=== PATIENT | female | born 1980 | race Caucasian/White ===

== ENCOUNTER 2018-07-13 14:12 | Emergency (ER) | END 2018-07-13 18:45 | disposition home or self-care (01) ==

== ENCOUNTER 2018-10-23 17:10 | Outpatient (CLI) | payer MEDICAID ==
[~2018-10-23] VITALS: Ht 167.6 cm; Wt 97.8 kg
[~2018-10-23 17:10] MED LIST: ACET500C5 PO
[2018-10-23 17:41] VITALS: Ht 167.6 cm; Wt 97.8 kg
[2018-10-23 17:42] VITALS: BP 119/86; PULSE 80; RESP 17
--- NOTE | 2018-10-23 20:39 | PN ---
Triage Information Date/Time 10/23/1811/07/2033 Reason for visit: Abd/pelvic pain Weeks of Gestation 25w4d /Para Diabetes: none Hypertention: none Additional information hx of PTB at 33w and 24w alleviated by resting ,aggrevated by walking Objective Vital Signs Date Temp Pulse Resp B/P (MAP) Pulse Ox O2 O2 Flow FiO2 Time Delivery Rate 10/23/18 98.1 80 17 119/86 17:42 (97) Heart Rate: 150's Heart Rate Comments adequate for GA Contractions: None Results/Medications Results 24 hrs Laboratory Tests Test 10/23/18 17:30 Urine Color STRAW Urine Clarity SLIGHTLY CLOUDY A Urine pH 6.0 Urine Specific [place] 1.004 Urine Ketones NEGATIVE Urine Nitrite NEGATIVE Urine Bilirubin NEGATIVE Urine Urobilinogen NEGATIVE Urine Leukocyte Esterase NEGATIVE Urine Microscopic RBC 1 Urine Microscopic WBC 0 Urine Squamous Epithelial Cells FEW Urine Bacteria FEW A Urine Hemoglobin NEGATIVE Urine Glucose NEGATIVE Urine Total Protein NEGATIVE Imaging Results CVL 3.0 MVP 7.5 Disposition: Discharge Assessment/Plan IUP 25w4d ligament pain plan discharge home with abdominal binder rest increase fluid intake RTH prn , watch for PTL since jagruti has Hx of PTB BERTRAND CRUZ MD Oct 23, 2018 20:39
--- NOTE | 2018-10-23 20:53 | TRIAGE ---
OB Triage Datetime Report Generated by CPN: 10/23/2018 20:53 Datetime: 10/23/2018 19:50 Labor Evaluation Frequency: none Monitor Mode: External Duration (sec)2399: [address] [place]: Relaxed Heart Rate FHR Baseline Rate: 140 Monitor Mode: External US Variability: Moderate 6-25 bpm Accelerations: 15X15 Decelerations: None Category: Category I Datetime: 10/23/2018 19:25 Monitor Mode: External Monitor Mode: External US Datetime: 10/23/2018 18:00 Labor Evaluation Frequency: x1 Monitor Mode: External Duration (sec)2399: 30 Quality: Mild Pattern: Normal: <= 5 Contractions in 10 Minutes Resting Tone [place]: Relaxed Heart Rate FHR Baseline Rate: 145 Variability: Minimal - Undetectable to <=5 bpm Pain Assessment Pain Type: Pressure Pain Location: Abdomen Datetime: 10/23/2018 17:32 Time of Arrival: 10/23/2018 17:03 EGA: 25.4 Arrived By: Ambulatory Arrived From: Home Chief Complaint: c/o lower abdominal cramping and pressure, getting worst when walking Movement: Present Contractions: Denies/Absent Rupture of Membranes: Denies Vaginal Bleeding: None Vaginal Discharge: Denies Recent Sexual Intercouse: Denies Abdominal Trauma: Not Applicable Patient Complaints: Cramping Time Provider Notified: 10/23/2018 17:16 Provider Notified: Initial Plan: r/o ptl
== END 2018-10-23 20:23 | disposition home or self-care (01) ==
LOC: OBT 17:10 → L-D 17:11 → OBT 20:23
PROVIDERS: ATTEND Obstetrics & Gynecology
DX: O26.892 Other specified pregnancy related conditions, second trimester (principal); R10.2 Pelvic and perineal pain; O09.522 Supervision of elderly multigravida, second trimester; Z3A.25 25 weeks gestation of pregnancy
CPT/HCPCS: 76815; 76817; 81001; Z7500; 81003; G0463

== ENCOUNTER 2019-01-01 11:34 | Outpatient (CLI) | payer MEDICAID ==
[~2019-01-01] VITALS: Ht 167.6 cm; Wt 98.1 kg
[2019-01-01 12:35] VITALS: BP 108/61; PULSE 73; RESP 18; Ht 167.6 cm; Wt 98.1 kg
[2019-01-01] MEDS ORDERED: METF-849 PO (12:39)
[2019-01-01] MEDS ORDERED: METF-480 PO (12:39)
[2019-01-01] MEDS ORDERED: PNV11TAB PO (12:39)
--- NOTE | 2019-01-01 13:41 | PN ---
Triage Information Date/Time 01/01/2019 Reason for visit: Uterine contractions Weeks of Gestation 35 weeks and 4 days /Para 4 para 3 Diabetes: gestational Diabetes management: diet controlled, insulin controlled Hypertention: none Additional information Previous x2 Objective Vital Signs Date Temp Pulse Resp B/P (MAP) Pulse Ox O2 O2 Flow FiO2 Time Delivery Rate 01/01/19 98.8 73 18 108/61 12:35 (77) Heart Rate: 140's Heart Rate Comments Reactive Contractions: None Exam Deferred Results/Medications Result Diagram: 01/01/19 1234 Results 24 hrs Laboratory Tests Test 01/01/19 12:20 01/01/19 12:30 01/01/19 12:34 Bedside Glucose 73 Urine Color STRAW Urine Clarity SLIGHTLY CLOUDY A Urine pH 7.0 Urine Specific [place] 1.004 Urine Ketones NEGATIVE Urine Nitrite NEGATIVE Urine Bilirubin NEGATIVE Urine Urobilinogen NEGATIVE Urine Leukocyte Esterase NEGATIVE Urine Microscopic RBC 2 Urine Microscopic WBC 8 H Urine Squamous FEW Epithelial Cells Urine Bacteria FEW A Urine Hemoglobin NEGATIVE Urine Glucose NEGATIVE Urine Total Protein NEGATIVE White Blood Count 12.2 H Red Blood Count 4.11 L Hemoglobin 11.7 L Hematocrit 35.6 L Mean Corpuscular Volume 86.6 Mean Corpuscular Hemoglobin 28.5 L Mean Corpuscular 32.9 Hemoglobin Concent Red Cell Distribution Width 13.8 Platelet Count 275 Mean Platelet Volume 10.4 Immature Granulocytes % 0.400 Neutrophils % 79.9 H Lymphocytes % 13.9 L Monocytes % 4.4 Eosinophils % 1.2 Basophils % 0.2 Nucleated Red Blood Cells % 0.0 Immature Granulocytes # 0.050 H Neutrophils # 9.7 H Lymphocytes # 1.7 Monocytes # 0.5 Eosinophils # 0.2 Basophils # 0.0 Nucleated Red Blood Cells # 0.0 Imaging Results There is a normal amount of amniotic fluid with an SANDY = 13.7 c Disposition: Discharge Assessment/Plan Follow-up as outpatient in the clinic MAI RUIZ MD Jan 01, 2019 13:41
--- NOTE | 2019-01-01 14:06 | TRIAGE ---
OB Triage Datetime Report Generated by CPN: 01/01/2019 14:06 Datetime: 01/01/2019 13:48 Stage of : OB Triage Datetime: 01/01/2019 13:33 Labor Evaluation Frequency: 0 Monitor Mode: External Pattern: Normal: <= 5 Contractions in 10 Minutes Resting Tone [place]: Relaxed Heart Rate FHR Baseline Rate: 135 Monitor Mode: External US Variability: Moderate 6-25 bpm Accelerations: 10X10 Decelerations: None Category: Category I Pain Assessment Pain Scale: 0 Pain Presence: None/Denies Pain Type: N/A Pain Goal: 3 Pain Relief Measures: Comfort Measures Datetime: 01/01/2019 12:35 Bedside Blood Glucose: 73 Datetime: 01/01/2019 12:22 Stage of : OB Triage Assessment Type: Triage Maternal Assessment Level of Consciousness: Keenly Alert, Responsive DTR's/Clonus: DTRs 2+; No Clonus Headache: Denies Blurred Vision: No Respiratory Effort: Unlabored; Regular Rhythm; Equal Expansion Breath Sounds, Left: Clear and Equal Breath Sounds, Right: Clear and Equal Nausea/Vomiting: Denies RUQ Epigastric Pain: Denies Facial Edema: None Temperature Route: Axillary Fall Risk Assessment History of Falling: (0) No Secondary Diagnosis: (0) No Ambulatory Aid: (0) Bedrest/Nurse Assist IV Therapy: (0) No Gait: (0) Normal/Bedrest/Immobile Mental Status: (0) Oriented to Own Ability Fall Score: 0 Fall Risk Score Definition: No Risk: No action required Labor Evaluation Frequency: 0 Monitor Mode: External Pattern: Normal: <= 5 Contractions in 10 Minutes Resting Tone [place]: Relaxed Heart Rate FHR Baseline Rate: 135 Monitor Mode: External US Variability: Moderate 6-25 bpm Accelerations: 10X10 Decelerations: None Category: Category I Pain Assessment Pain Scale: 2 Pain Presence: Intermittent Pain Type: Cramping Pain Location: Abdomen; Perineum Pain Goal: 3 Pain Relief Measures: Comfort Measures Datetime: 12/30/2018 09:02 Time of Arrival: 01/01/2019 11:30 EGA: 35.4 Arrived By: Ambulatory Arrived From: Dr. Brown Chief Complaint: referred from office for ptl Movement: Present Contractions: Denies/Absent Rupture of Membranes: Denies Vaginal Bleeding: None Vaginal Discharge: Denies Recent Sexual Intercouse: Denies Abdominal Trauma: Not Applicable Time Provider Notified: 01/01/2019 13:48 Provider Notified: carmel Initial Plan: bpp, u/a , c_s, cbc, cl Datetime: 10/23/2018 17:32 EGA: 25.4
--- NOTE | 2019-01-02 13:08 | NSTRPT ---
NST Information Datetime Report Generated by CPN: 01/02/2019 13:08 Datetime: 01/02/2019 09:25 NST Information EGA: 35.5 Test Number: 12 Time on Monitor: 01/02/2019 10:02 Time off Monitor: 01/02/2019 10:26 NST Duration (Min): 24 Reason for NST: Diabetes Mellitus; Previous Demise; Other Reason for NST Other: A2DM, Hx IUFD at 24wks Test and Monitor Explained: Monitor Explained; Test Explained; Verbalized Understanding Pulse: 85 Resp: 18 SBP: 105 DBP: 66 Test Evaluation NST Interventions: None Patient States Movement: Present Contraction Frequency: X1/50/MILD/PAIN LEVEL 0 FHR Baseline : 150 Variability: Moderate 6-25bpm Accelerations: 15X15 Decelerations: None FHR Category: Category I NST Results: Reactive Comments: To u/s SANDY 9.0 CM CEPHALIC Electronically Signed By E-Signature: with User ID: [id number] Datetime: 12/30/2018 08:58 NST Information EGA: 35.2 NST Duration (Min): 40 Datetime: 12/26/2018 08:45 NST Information EGA: 34.5 NST Duration (Min): 27 Datetime: 12/23/2018 08:41 NST Information EGA: 34.2 NST Duration (Min): 32 Datetime: 12/19/2018 09:55 NST Information EGA: 33.5 NST Duration (Min): 22 Datetime: 12/16/2018 09:58 NST Information EGA: 33.2 NST Duration (Min): 30 Datetime: 12/12/2018 08:35 NST Information EGA: 32.5 NST Duration (Min): 35 Datetime: 12/09/2018 09:53 NST Information EGA: 32.2 NST Duration (Min): 21 Datetime: 12/03/2018 08:45 NST Information EGA: 31.3 NST Duration (Min): 37 Datetime: 11/26/2018 08:23 NST Information EGA: 30.3 NST Duration (Min): 30
== END 2019-01-01 14:00 | disposition home or self-care (01) ==
LOC: OBT 11:34 → L-D 11:36 → OBT 14:00
PROVIDERS: ATTEND Obstetrics & Gynecology
DX: O62.9 Abnormality of forces of labor, unspecified (principal); O24.414 Gestational diabetes mellitus in pregnancy, insulin controlled; O09.523 Supervision of elderly multigravida, third trimester; O34.219 Maternal care for unspecified type scar from previous cesarean delivery; Z3A.35 35 weeks gestation of pregnancy
CPT/HCPCS: 76817; 76818; 81001; 82962; 85025; 87086; Z7500; 81003; G0463

== ENCOUNTER 2019-01-12 11:11 | Outpatient (CLI) | payer MEDICAID ==
[~2019-01-12] VITALS: Ht 165.1 cm; Wt 95.4 kg
[~2019-01-12 11:11] MED LIST changes: -ACET500C5 PO; +METF-480 PO; +METF-849 PO; +PNV11TAB PO
[2019-01-12 11:15] VITALS: Ht 165.1 cm; Wt 95.4 kg
[2019-01-12] MEDS ORDERED: NPH,100I5 SQ (11:16)
--- NOTE | 2019-01-12 13:47 | PN ---
Triage Information Date/Time Reason for visit: DFM Weeks of Gestation 38-year-old advanced maternal age 4 para 3 at 37 weeks and 1 day of gestation with estimated date of delivery February 01, 2019 Patient is gestational diabetic A2 on both metformin and insulin She has been worked up for possible cholestasis although bile acid results are within normal limits Patient presents with chief complaint of decreased movement, denies vaginal bleeding or leaking fluid, denies uterine contractions Past obstetrical history significant for previous x2 /Para 4 para 3 Diabetes: gestational (GDM A2 on metformin and insulin) Hypertention: none Objective Heart Rate: 140's Heart Rate Comments heart rate tracing category 1 Contractions: None Results/Medications Result Diagram: 01/12/19 1236 01/12/19 1236 Results 24 hrs Laboratory Tests Test 01/12/19 12:36 White Blood Count 9.8 Red Blood Count 4.32 Hemoglobin 12.2 Hematocrit 37.7 Mean Corpuscular Volume 87.3 Mean Corpuscular Hemoglobin 28.2 L Mean Corpuscular Hemoglobin Concent 32.4 Red Cell Distribution Width 13.7 Platelet Count 258 Mean Platelet Volume 10.7 H Immature Granulocytes % 0.500 H Neutrophils % 75.9 Lymphocytes % 16.1 Monocytes % 4.9 Eosinophils % 2.3 Basophils % 0.3 Nucleated Red Blood Cells % 0.0 Immature Granulocytes # 0.050 H Neutrophils # 7.5 Lymphocytes # 1.6 Monocytes # 0.5 Eosinophils # 0.2 Basophils # 0.0 Nucleated Red Blood Cells # 0.0 Sodium Level 138 Potassium Level 4.6 Chloride Level 106 Carbon Dioxide Level 22 Anion Gap 10 Blood Urea Nitrogen 5 L Creatinine 0.41 L Est Glomerular Filtrat Rate mL/min > 60 Glucose Level 67 L Uric Acid 4.3 Calcium Level 8.8 Total Bilirubin 0.3 Direct Bilirubin 0.00 Indirect Bilirubin 0.3 Aspartate Amino Transf (AST/SGOT) 15 Alanine Aminotransferase (ALT/SGPT) 13 Alkaline Phosphatase 104 Total Protein 7.0 Albumin 3.6 Globulin 3.40 H Albumin/Globulin Ratio 1.05 Imaging Results PROCEDURE: OB ultrasound for biophysical profile CLINICAL INDICATION: Decreased movement. TECHNIQUE: Multiple sonographic images of the pelvis were obtained. Transabdominal view of the gravid uterus are available for review. The images were reviewed on a PACS workstation. COMPARISON: US PELVIS 01/01/2019 FINDINGS: breathing movement = 2/2 tone = 2/2 motion = 2/2 Quantitative amniotic fluid volume = 2/2 SANDY = 10.2 cm Single live intrauterine with cardiac activity at 173 beats per minute. There is a fundal placenta without previa or abruption. IMPRESSION: 1. Single living intrauterine gestation in cephalic position. 2. Biophysical profile = 8/8. 3. SANDY = 10.2 cm. RPTAT: AACC Mario Fishman Physician Date Time Electronically viewed and signed by Mario Fishman Physician on 01/12/2019 12:17 JH/ CC: MAI RUIZ MD [id number] Disposition: Discharge Assessment/Plan Patient reports she is feeling movement here in triage All labs and ultrasound results within normal limits Patient instructed to continue with testing twice weekly She is scheduled with an appointment for NST and BPP tomorrow She is scheduled for repeat by BEATA Cline MD Jan 12, 2019 13:47
--- NOTE | 2019-01-12 13:48 | TRIAGE ---
OB Triage Datetime Report Generated by CPN: 01/12/2019 13:47 Datetime: 01/12/2019 13:40 Maternal Assessment Level of Consciousness: Keenly Alert, Responsive DTR's/Clonus: DTRs 1+ Headache: Denies Blurred Vision: No Nausea/Vomiting: Denies RUQ Epigastric Pain: Denies Facial Edema: None Labor Evaluation Frequency: NONE Monitor Mode: External Resting Tone [place]: Relaxed Heart Rate FHR Baseline Rate: 135 Monitor Mode: External US Variability: Moderate 6-25 bpm Accelerations: 15X15 Decelerations: None Category: Category I Pain Assessment Pain Scale: 0 Pain Presence: None/Denies Pain Type: N/A Pain Goal: 3 Vaginal Exam Membrane Status: Intact Datetime: 01/12/2019 13:00 Stage of : OB Triage Maternal Assessment Level of Consciousness: Keenly Alert, Responsive DTR's/Clonus: DTRs 1+ Headache: Denies Nausea/Vomiting: Denies RUQ Epigastric Pain: Denies Labor Evaluation Frequency: NONE Monitor Mode: External Resting Tone [place]: Relaxed Heart Rate FHR Baseline Rate: 145 Monitor Mode: External US Variability: Moderate 6-25 bpm Accelerations: 15X15 Decelerations: None Category: Category I Pain Assessment Pain Scale: 0 Pain Presence: None/Denies Pain Type: N/A Pain Goal: 3 Vaginal Exam Membrane Status: Intact Datetime: 01/12/2019 11:33 Maternal Assessment Level of Consciousness: Keenly Alert, Responsive DTR's/Clonus: DTRs 1+ Headache: Denies Blurred Vision: No Nausea/Vomiting: Denies RUQ Epigastric Pain: Denies Facial Edema: None Monitor Mode: External Resting Tone [place]: Relaxed Heart Rate FHR Baseline Rate: 140 Monitor Mode: External US Variability: Moderate 6-25 bpm Accelerations: 15X15 Decelerations: None Category: Category I Pain Assessment Pain Scale: 0 Pain Presence: None/Denies Pain Type: N/A Pain Goal: 3 Vaginal Exam Membrane Status: Intact Datetime: 01/12/2019 11:02 Time of Arrival: 01/12/2019 11:02 EGA: 37.1 Arrived By: Ambulatory Arrived From: Home Chief Complaint: DFM Movement: Decreased Contractions: Denies/Absent Rupture of Membranes: Denies Vaginal Discharge: Denies Recent Sexual Intercouse: Denies Abdominal Trauma: Not Applicable Additional Patient Complaints: NONE Time Provider Notified: 01/12/2019 11:02 Provider Notified: OWEN Initial Plan: NST AND BPP Datetime: 01/01/2019 12:22 Fall Risk Assessment Fall Score: 0 Fall Risk Score Definition: No Risk: No action required Datetime: 12/30/2018 09:02 EGA: 35.4 Datetime: 10/23/2018 17:32 EGA: 25.4
== END 2019-01-12 13:44 | disposition home or self-care (01) ==
LOC: OBT 11:11 → L-D 11:11 → OBT 13:44
PROVIDERS: ATTEND Obstetrics & Gynecology
DX: O24.414 Gestational diabetes mellitus in pregnancy, insulin controlled (principal); O09.523 Supervision of elderly multigravida, third trimester; O36.8130 Decreased fetal movements, third trimester, not applicable or unspecified; Z3A.37 37 weeks gestation of pregnancy
CPT/HCPCS: 36415; 76818; 80053; 84560; 85025; Z7500; G0463

== ENCOUNTER 2019-01-19 02:50 | Inpatient (IN) | payer MEDICAID ==
[~2019-01-19] VITALS: Ht 167.6 cm; Wt 99.7 kg
[~2019-01-19 02:50] MED LIST changes: +NPH,100I5 SQ
[2019-01-19 04:31] VITALS: Ht 167.6 cm; Wt 99.7 kg
[2019-01-19 04:32] VITALS: BP 139/90; PULSE 74; RESP 20
[2019-01-19] MEDS ORDERED: TERBUTALINE 1 MG/ML INJ SC PRN (05:00)
[2019-01-19] MEDS ORDERED: CLINDAMYCIN 900 MG/D5W (PMX) 50 ML IVPB SCH ×2 (05:00→13:30)
[2019-01-19] MEDS ORDERED: METHYLERGONOVINE 0.2 MG INJ IM PRN ×2 (05:00→17:30)
[2019-01-19] MEDS ORDERED: BUTORPHANOL 2 MG INJ IV PRN (05:00)
[2019-01-19] MEDS ORDERED: MISOPROSTOL 200 MCG TAB PR PRN ×2 (05:00→17:30)
[2019-01-19] MEDS ORDERED: ONDANSETRON 4 MG INJ IV PRN ×2 (05:00→13:30)
[2019-01-19] MEDS ORDERED: OXYTOCIN 30 UNITS/LR 500 ML IV PRN ×2 (05:00→17:30)
[2019-01-19] MEDS ORDERED: CARBOPROST 250 MCG INJ IM PRN ×2 (05:00→17:30)
[2019-01-19] MEDS ORDERED: OXYTOCIN 30 UNITS/LR 500 ML IV SCH (05:00)
[2019-01-19] MEDS: LACTATED RINGER'S 1,000 ML IV SCH ×3 (05:15→10:54)
--- NOTE | 2019-01-19 08:09 | TRIAGE ---
OB Triage Datetime Report Generated by CPN: 01/19/2019 08:09 Datetime: 01/19/2019 07:22 Assessment Type: Ongoing Assessment Maternal Assessment Level of Consciousness: Keenly Alert, Responsive DTR's/Clonus: DTRs 1+ Headache: Denies Blurred Vision: No Respiratory Effort: Unlabored Breath Sounds, Left: Clear and Equal Breath Sounds, Right: Clear and Equal Nausea/Vomiting: Denies RUQ Epigastric Pain: Denies Lower Extremities Edema: None Degree: None Upper Extremities Edema: None Degree: None Facial Edema: None Fall Risk Assessment History of Falling: (0) No Secondary Diagnosis: (0) No Ambulatory Aid: (0) Bedrest/Nurse Assist IV Therapy: (20) Yes Gait: (0) Normal/Bedrest/Immobile Mental Status: (0) Oriented to Own Ability Fall Score: 20 Fall Risk Score Definition: No Risk: No action required Datetime: 01/19/2019 07:00 Stage of : OB Triage Labor Evaluation Frequency: Irregular Monitor Mode: External Duration (sec)2399: 40-80 Quality: Moderate Pattern: Normal: <= 5 Contractions in 10 Minutes Resting Tone [place]: Relaxed Heart Rate FHR Baseline Rate: 135 Monitor Mode: External US Variability: Moderate 6-25 bpm Accelerations: 15X15 Decelerations: None Category: Category I Datetime: 01/19/2019 06:00 Stage of : OB Triage Labor Evaluation Frequency: Irregular Monitor Mode: External Duration (sec)2399: 40-80 Quality: Moderate Pattern: Normal: <= 5 Contractions in 10 Minutes Resting Tone [place]: Relaxed Heart Rate FHR Baseline Rate: 130 Monitor Mode: External US FHR Baseline Changes: No Baseline Change Variability: Moderate 6-25 bpm Accelerations: 15X15 Decelerations: None Category: Category I Datetime: 01/19/2019 05:00 Stage of : OB Triage Labor Evaluation Frequency: Irregular Monitor Mode: External Duration (sec)2399: 40-60 Quality: Moderate Pattern: Normal: <= 5 Contractions in 10 Minutes Resting Tone [place]: Relaxed Heart Rate FHR Baseline Rate: 130 Monitor Mode: External US FHR Baseline Changes: No Baseline Change Variability: Moderate 6-25 bpm Accelerations: 15X15 Decelerations: None Category: Category I Datetime: 01/19/2019 04:31 Assessment Type: Admission Assessment Vaginal Bleeding: None Maternal Assessment Level of Consciousness: Keenly Alert, Responsive DTR's/Clonus: DTRs 2+; No Clonus Headache: Denies Blurred Vision: No Respiratory Effort: Unlabored; Regular Rhythm; Equal Expansion Breath Sounds, Left: Clear and Equal Breath Sounds, Right: Clear and Equal RUQ Epigastric Pain: Denies Lower Extremities Edema: Bilateral Lower Extremities Degree: Pitting Upper Extremities Edema: None Degree: None Facial Edema: None Fall Risk Assessment History of Falling: (0) No Secondary Diagnosis: (0) No Ambulatory Aid: (0) Bedrest/Nurse Assist IV Therapy: (0) No Gait: (0) Normal/Bedrest/Immobile Mental Status: (0) Oriented to Own Ability Fall Score: 0 Fall Risk Score Definition: No Risk: No action required Membrane Status: Intact Datetime: 01/19/2019 04:09 Stage of : OB Triage Datetime: 01/19/2019 04:08 Stage of : OB Triage Datetime: 01/19/2019 04:00 Stage of : OB Triage Labor Evaluation Frequency: Irregular Monitor Mode: External Duration (sec)2399: 40-80 Quality: Moderate Pattern: Normal: <= 5 Contractions in 10 Minutes Resting Tone [place]: Relaxed Heart Rate FHR Baseline Rate: 130 Monitor Mode: External US Variability: Moderate 6-25 bpm Accelerations: 15X15 Decelerations: None Category: Category I Datetime: 01/19/2019 03:34 Stage of : OB Triage Datetime: 01/19/2019 03:19 Stage of : OB Triage Datetime: 01/19/2019 03:08 Stage of : OB Triage Vaginal Exam Dilatation (cms): 1.0 Effacement (%): 80 Station: -1 Exam By: YiselRN Datetime: 01/19/2019 03:04 Stage of : OB Triage Assessment Type: Triage Maternal Assessment Level of Consciousness: Keenly Alert, Responsive DTR's/Clonus: DTRs 2+; No Clonus Headache: Denies Blurred Vision: No Respiratory Effort: Unlabored; Regular Rhythm; Equal Expansion Breath Sounds, Left: Clear and Equal Breath Sounds, Right: Clear and Equal Nausea/Vomiting: Present (Annotations: Pt reports nausea with the uc pain) RUQ Epigastric Pain: Denies Lower Extremities Edema: Bilateral Lower Extremities Degree: Pitting Upper Extremities Edema: None Degree: None Facial Edema: None Fall Risk Assessment History of Falling: (0) No Secondary Diagnosis: (0) No Ambulatory Aid: (0) Bedrest/Nurse Assist IV Therapy: (0) No Gait: (0) Normal/Bedrest/Immobile Mental Status: (0) Oriented to Own Ability Fall Score: 0 Fall Risk Score Definition: No Risk: No action required Datetime: 01/19/2019 02:58 Stage of : OB Triage Monitor Mode: External Contraction Comments: [place] applied Heart Rate FHR Baseline Rate: 130 Monitor Mode: External US Comments: EFM applied Datetime: 01/19/2019 02:55 Time of Arrival: 01/19/2019 02:50 EGA: 38.1 Arrived By: Wheelchair Arrived From: Home Chief Complaint: Abdominal pain _ cramping Movement: Present Contractions: Irregular Time Contractions Began: 01/19/2019 00:00 Contractions: Irreg Rupture of Membranes: Denies Vaginal Bleeding: None Vaginal Discharge: Present Recent Sexual Intercouse: Denies Abdominal Trauma: Not Applicable Patient Complaints: Contractions; Cramping; Nausea Time Provider Notified: 01/19/2019 04:09 Provider Notified: Initial Plan: Monitor Datetime: 01/12/2019 11:02 EGA: 37.1 Datetime: 01/01/2019 12:22 Fall Score: 0 Fall Risk Score Definition: No Risk: No action required Datetime: 12/30/2018 09:02 EGA: 35.4 Datetime: 10/23/2018 17:32 EGA: 25.4
[2019-01-19] MEDS ORDERED: GENTAMICIN 80 MG/NS (PMX) 50 ML IVPB ONE (10:00)
[2019-01-19] MEDS ORDERED: morphine SULFATE/PF (10 MG/10 ML) INJ ONE (11:58)
[2019-01-19] MEDS ORDERED: OXYTOCIN 10 UNIT INJ ONE (11:58)
--- NOTE | 2019-01-19 12:17 | PREAC ---
Date/Time of Note Date/Time of Note DATE: 01/19/19 TIME: 12:15 Anesthesia Eval and Record Evaluation Time Pre-Procedure Interview DATE: 01/19/19 TIME: 12:15 Age 38 Sex female NPO: 8 hrs Preoperative diagnosis IUP Planned procedure Repeat C/Section Past Medical History Past Medical History: Includes Endo: Diabetes GI: Morbid obesity : : Surgery & Anesthesia Issues No known issue Meds Anticoagulation: No Beta Twin within 24 hr: No Reason Beta Twin not given: Pt. not on B-Twni Reported Medications NPH, Human Insulin Isophane (Humulin N Kwikpen) 100 Unit/1 Ml Insuln.pen, 15 UNIT SQ, EA 01/12/19 Metformin* (Glucophage*) 500 Mg Tab, 500 MG PO WITH DINNER, #30 TAB 01/01/19 Metformin* (Glucophage*) 850 Mg Tablet, 850 MG PO WITH BREAKFAST, #30 TAB 01/01/19 [id number] ( ) 1 Each Tablet, 1 TAB PO DAILY, TAB 01/01/19 Current Medications Lactated Ringer's 1,000 ml @ 125 mls/hr Q8H IV Last administered on 01/19/19at 10:54; Admin Dose 125 MLS/HR; Start 01/19/19 at 04:33 Oxytocin/Lactated Ringer's 500 ml @ 125 mls/hr POST IV ; Start 01/19/19 at 05:00 Oxytocin/Lactated Ringer's 500 ml @ 0 mls/hr ONCE PRN IV .VAGINAL BLEEDING; Start 01/19/19 at 05:00 Methylergonovine Maleate (Methergine) 0.2 mg ONCE PRN IM .VAGINAL BLEEDING; Start 01/19/19 at 05:00 Carboprost Tromethamine (Hemabate) 250 mcg ONCE PRN IM .VAGINAL BLEEDING; Start 01/19/19 at 05:00 Misoprostol (Cytotec) 1,000 mcg ONCE PRN CO .VAGINAL BLEEDING; Start 01/19/19 at 05:00 Ondansetron HCl (Zofran Inj) 4 mg Q6H PRN IV NAUSEA AND/OR VOMITING; Start 01/19/19 at 05:00 Butorphanol Tartrate (Stadol) 1 mg Q2H PRN IV PAIN; Start 7/1/19 at 05:00 Terbutaline Sulfate (Brethine) 0.25 mg ONCE PRN SC PAIN; Start 01/19/19 at 05:00; Stop 01/22/19 at 04:59 Meds reviewed: Yes Allergies Coded Allergies: Penicillins (Verified Allergy, Unknown, 01/19/19) Allergies Reviewed: Yes Labs/Studies Labs Reviewed: Reviewed by anesthesiologist Result Diagram: 01/19/19 0452 01/19/19 0515 Laboratory Tests 01/19/19 04:52 01/19/19 05:15 Blood Bank Test 01/19/19 04:52 Antibody Screen NEGATIVE Blood Type A POSITIVE Rh Immune Globulin Candidate NO test: Positive Pre-procedure Exam Last vitals Vital Signs Date Temp Pulse Resp B/P (MAP) Pulse Ox O2 O2 Flow FiO2 Time Delivery Rate 01/19/19 97.7 74 20 139/90 Room Air 04:32 (106) Airway: Adequate mouth opening Mallampati: Mallampati II Teeth: Normal Lung: Normal Heart: Normal ASA Physical Status ASA physical status: 2 Emergency: None Planned Anesthetic Neuraxial: Spinal Planned Pain Management Sub-arachniod narcotics, Parenteral pain med Pre-operative Attestations Prior to commencing anesthesia and surgery, the patient was re-evaluated, there was verification of: *The patient's identity *The results of appropriate recent lab work and preoperative vital signs *The above evaluation not changing prior to induction *Anesthetic plan, risk benefits, alternative and complications discussed with patient/family; questions answered; patient/family understands, accepts and wishes to proceed. DELVIN HELM MD Jan 19, 2019 12:17
[2019-01-19] MEDS ORDERED: FENTAnyl 50 MCG/ML VIAL ONE ×2 (12:35→12:47)
[2019-01-19] MEDS ORDERED: ACETAMINOPHEN 500 MG TAB PO STA (13:15)
[2019-01-19] MEDS ORDERED: KETOROLAC 30 MG INJ IV STA (13:15)
--- NOTE | 2019-01-19 13:28 | PAC ---
Date/Time of Note Date/Time of Note DATE: 01/19/19 TIME: 13:27 Post-Anesthesia Notes Post-Anesthesia Note Last documented vital signs Vital Signs Date Temp Pulse Resp B/P (MAP) Pulse Ox O2 O2 Flow FiO2 Time Delivery Rate 01/19/19 97.7 74 20 139/90 Room Air 04:32 (106) Activity: WNL Respiratory function: WNL Cardiovascular function: WNL Mental status: Baseline Pain reasonably controlled: Yes Hydration appropriate: Yes Nausea/Vomiting absent: Yes Comments BP:112/56, P:88, Sp02:100%, T:98,8 DELVIN HELM MD Jan 19, 2019 13:28
[2019-01-19] MEDS ORDERED: NALOXONE (0.4 MG/ML) INJ IV PRN (13:30)
[2019-01-19] MEDS ORDERED: DIPHENHYDRAMINE 50 MG INJ IV PRN (13:30)
[2019-01-19] MEDS ORDERED: morphine 2 MG INJ IV PRN (13:30)
[2019-01-19] MEDS ORDERED: TRIMETHOBENZAMIDE 100 MG/ML VIAL IM PRN (13:30)
--- NOTE | 2019-01-19 13:30 | HP ---
Date/Time of Note Date/Time of Note DATE: 01/19/19 TIME: 13:25 OB - History Hx of Present Free Text/Dictation 38-year-old female 4 para 3 at 38+ weeks gestation with history of 2 previous C-sections admitted complaining of uterine contractions started early a.m. Chief Complaint: Able contractions Last Menstrual Period: Mar 25, 2018 Estimated Due Date: Feb 01, 2019 : 3 Para: 2 Care: Good Care Ultrasounds: Normal mid trimester US Obstetrical Complications: Gestational Diabetes (Using metformin and insulin), Other (Advanced maternal age) Medical Complications: Other (Previous x2) Past Family/Social History * Past Medical, Surgical, Family and Obstetric Histories reviewed from chart. Blood Type: A+ Rubella: immune RPR/VDRL: Negative GBS Status: Negative HBsAG: Negative OB Admission Exam Vital Signs Vital Signs Vital Signs Date Temp Pulse Resp B/P (MAP) Pulse Ox O2 O2 Flow FiO2 Time Delivery Rate 01/19/19 97.7 74 20 139/90 Room Air 04:32 (106) Physical Exam HEENT: WNL Heart: Rhythm Normal Lungs: Clear, Equal Abdomen: WNL Extremities: Normal Reflexes: Normal Cervical Dilatation: 1cm Effacement: 50% Station: -3 Membranes: Intact Heart Rate: 140's Accelerations: Accelerations Present Decelerations: No Decelerations Varibility: Marked Contractions on Admission: < 5 Minutes Apart Date/Time Contractions Began: January 19, 2019 Frequency of Contractions: Every 3 4 minutes Duration: Over 1 minute Intensity: Moderate Last 72 hourBlood Glucose Bedside Glucose - 72 Hours Test 01/19/19 08:23 Bedside Glucose 85 mg/dL (70-220) Last 72 hours Lab Results CBC & BMP 01/19/19 04:52 01/19/19 05:15 OB Assessment/Plan Other Assessment: Term gestation Previous x2 Gestational diabetes Advanced maternal age Labor contraction Other plan: Repeat section MAI RUIZ MD Jan 19, 2019 13:30
--- NOTE | 2019-01-19 13:35 | OPR ---
Operative Report Planned Procedure Free Text/Dictation 38-year-old female with 2 previous at 38 weeks for repeat section Procedure date Jan 19, 2019 Procedure(s) Repeat section Performed by see signature line Windows And Doors Installer: SURESH GODFREY MD Anesthesiologist: DELVIN HELM MD Pre-procedure diagnosis Term gestation Previous x2 Contractions [id number] Anesthesia Type: Pupar5n spinal Post-Procedure Post-procedure diagnosis Repeat section Findings Live Baby with vertex presentation which was turned into breech, clear amniotic fluid Normal-appearing right and left fallopian tubes and ovaries Estimated Blood Loss: 500 - 600 mls Specimen(s) none Grafts/Implant(s) none Complication(s) none Pt Condition post procedure: stable Disposition: PACU Procedure Description Under satisfactory anaesthesia a Pfannenstiel incision was made two fingerb readth above and parallel to the symphysis of pubis around the previous scar and previous scar was removed Incision was extended laterally to the border of the Recti muscles on either sides. Incision was carried down with sharp and blunt dissection until fascia was reached. Anterior Recti muscle fascia was incised in mid portion and incision extended laterally to the border of skin incision. Fascia was mobilized from muscle superiorly and Recti muscles were from midline using sharp and blunt dissection. Peritoneum was visualized; Avoiding bowel and bladder it was incised . Incision was extended superiorly and inferiorly. Bladder blade was placed. Posterior peritoneum covering the lower segment of the uterus and lower segment of the uterus were incised.Low transverse uterine incision was made on lower segment of the uterus. Incision extended laterally to the border of Round Lig. on either sides and baby was delivered from . Amniotic fluid appeared clear. Cord blood was obtained and cord had 3 vessels . Placenta was delivered spontaneously and appeared intact and complete. Intrauterine cavity was rubbed with a laparotomy sponge. Uterine incision was closed in 2 layers using running stitches of No1 Monocryl. Hemostasis appeared secure. Ovaries and Fallopian tubes were within normal limits. Announcing needle, lap sponge and instrument count to be correct abdomen was closed in layers as follows: Peritoneum and Recti muscles with running stitches of 2-0 Vicryl. Fascia with running stitch of No 1 PDS. Subcutaneous tissue with running stitches of 2-0 Monocryl and skin was closed using brooks. Patient tolerated the procedure well and was transferred to [facility] in good condition. MAI RUIZ MD Jan 19, 2019 13:35
[2019-01-19] MEDS ORDERED: GLUCOSE GEL 15 GRAM TUBE PO PRN ×2 (14:00)
[2019-01-19] MEDS ORDERED: GLUCAGON 1 MG INJ IM PRN (14:00)
[2019-01-19] MEDS ORDERED: GLUCOSE GEL 15 GRAM TUBE BUCCAL PRN (14:00)
[2019-01-19] MEDS ORDERED: DEXTROSE 50% 50 ML SYRINGE IV PRN ×2 (14:00)
[2019-01-19 16:40] VITALS: BP 105/60; PULSE 75; RESP 18
[2019-01-19] MEDS: metFORMIN (XR) 500 MG TAB PO SCH ×2 (16:40→20:48)
[2019-01-19 16:55] VITALS: BP 105/55; PULSE 80; RESP 18
[2019-01-19] MEDS ORDERED: LACTATED RINGER'S 1,000 ML IV SCH (17:06)
[2019-01-19 17:25] VITALS: BP 100/53; PULSE 79; RESP 18
[2019-01-19] MEDS ORDERED: NA PHOSPHATE/BIPHOS 133 ML ENEMA PR PRN (17:30)
[2019-01-19] MEDS ORDERED: LANOLIN HPA 1 PKT TOP PRN (17:30)
[2019-01-19] MEDS ORDERED: OXYCODONE/ACETAMINOPHEN (5/325) TAB PO PRN (17:30)
[2019-01-19] MEDS: CLINDAMYCIN 900 MG/D5W (PMX) 50 ML IVPB SCH ×2 (17:30→22:55)
[2019-01-19 18:00] VITALS: BP 101/57; PULSE 75; RESP 18
[2019-01-19 20:00] VITALS: BP 107/64; PULSE 81; RESP 16
[2019-01-19] MEDS: ACCU-CHEK XX SCH (20:05)
[2019-01-19] MEDS: GENTAMICIN 80 MG/NS (PMX) 50 ML IVPB SCH (20:32)
[2019-01-19] MEDS: SENNA/DOCUSATE NA (8.6MG/50MG) TAB PO SCH (20:42)
[2019-01-20] VITALS: BP 101/59; PULSE 82; RESP 18
[2019-01-20] MEDS: KETOROLAC 30 MG INJ IV PRN ×2 (00:25→09:36)
[2019-01-20] MEDS: GENTAMICIN 80 MG/NS (PMX) 50 ML IVPB SCH ×3 (03:41→17:40)
[2019-01-20 04:00] VITALS: BP 113/70; PULSE 78; RESP 18
[2019-01-20] MEDS: CLINDAMYCIN 900 MG/D5W (PMX) 50 ML IVPB SCH ×2 (06:18→13:46)
[2019-01-20 07:45] VITALS: BP 115/66; PULSE 80; RESP 18
[2019-01-20] MEDS: ACCU-CHEK XX SCH ×4 (08:25→20:05)
[2019-01-20] MEDS: SENNA/DOCUSATE NA (8.6MG/50MG) TAB PO SCH ×2 (08:33→21:06)
[2019-01-20] MEDS: metFORMIN (XR) 500 MG TAB PO SCH ×2 (08:33→21:06)
--- NOTE | 2019-01-20 12:12 | PN ---
Date/Time of Note Date/Time of Note DATE: 01/20/19 TIME: 12:11 Assessment/Plan VTE Prophylaxis VTE Prophylaxis Intervention: ambulation Lines/Catheters IV Catheter Type (from Nrsg): Peripheral IV Assessment/Plan Assessment/Plan Status post postop day #1 Sugars are within normal limits White count slightly elevated we will repeat following day Continue to observe patient and provide supportive care Subjective 24 Hr Interval Summary No bowel movement but passing flatus Constitutional: no complaints, improved, ambulates, BM, flatus, urine output Pain Control: well controlled Exam/Review of Systems Vital Signs Vitals Vital Signs Date Temp Pulse Resp B/P (MAP) Pulse Ox O2 O2 Flow FiO2 Time Delivery Rate 01/20/19 98.2 80 18 115/66 98 Room Air 07:45 (82) Intake and Output 01/19/19 01/19/19 01/20/19 1515:00 23:00 07:00 IntakeIntake Total 3613 ml 437 ml OutputOutput Total 1300 ml 2040 ml 1050 ml BalanceBalance 2313 ml -1603 ml -1050 ml Exam Free Text/Dictation Abdomen is soft with present bowel sounds and abdomen does not seem distended Incision is covered Constitutional: alert, oriented, well developed Psych: no complaints, nl mood/affect Head: normocephalic, atraumatic Eyes: nl conjunctiva, EOMI, nl lids, nl sclera ENMT: nl external ears & nose, nl lips & teeth, nl nasal mucosa & septum, mucosa pink and moist Neck: supple, non-tender Respiratory: clear to auscultation, normal air movement Cardiovascular: regular rate and rhythm, nl pulses Gastrointestinal: soft, nl liver, spleen, non-tender Musculoskeletal: nl extremities to inspection, nl gait and stance Extremities: normal pulses Neurological: MECHANICAL HANDYMAN II-XII intact, nl mental status, nl speech, nl strength Skin: nl turgor, rash or lesions Lymph: nl lymph nodes Results Result Diagram: 01/20/19 0801 01/19/19 0515 MAI RUIZ MD Jan 20, 2019 12:12
[2019-01-20 12:30] VITALS: BP 118/71; PULSE 79; RESP 19
[2019-01-20] MEDS: IBUPROFEN 800 MG TAB PO SCH ×2 (13:46→22:32)
--- NOTE | 2019-01-20 14:59 | NSTRPT ---
NST Information Datetime Report Generated by CPN: 01/20/2019 14:59 Datetime: 01/16/2019 09:55 NST Information EGA: 37.5 Test Number: 16 Time on Monitor: 01/16/2019 10:47 Time off Monitor: 01/16/2019 11:18 NST Duration (Min): 31 Reason for NST: Diabetes Mellitus; Previous Demise; Other Reason for NST Other: A2DM, Hx IUFD at 24wks Test and Monitor Explained: Monitor Explained; Test Explained; Verbalized Understanding Pulse: 88 Resp: 18 SBP: 102 DBP: 62 Test Evaluation NST Interventions: None Patient States Movement: Present Contraction Frequency: NONE FHR Baseline : 155 Variability: Moderate 6-25bpm Accelerations: 15X15 Decelerations: None FHR Category: Category I NST Results: Reactive Comments: To u/s christopher 16.4 cm cephalic FBS 103 Electronically Signed By E-Signature: with User ID: [id number] Datetime: 01/13/2019 13:29 NST Information EGA: 37.2 NST Duration (Min): 21 Datetime: 01/09/2019 10:04 NST Information EGA: 36.5 NST Duration (Min): 32 Datetime: 01/06/2019 08:33 NST Information EGA: 36.2 NST Duration (Min): 22 Datetime: 01/02/2019 09:25 NST Information EGA: 35.5 NST Duration (Min): 24 Datetime: 12/30/2018 08:58 NST Information EGA: 35.2 NST Duration (Min): 40 Datetime: 12/26/2018 08:45 NST Information EGA: 34.5 NST Duration (Min): 27 Datetime: 12/23/2018 08:41 NST Information EGA: 34.2 NST Duration (Min): 32 Datetime: 12/19/2018 09:55 NST Information EGA: 33.5 NST Duration (Min): 22 Datetime: 12/16/2018 09:58 NST Information EGA: 33.2 NST Duration (Min): 30 Datetime: 12/12/2018 08:35 NST Information EGA: 32.5 NST Duration (Min): 35 Datetime: 12/09/2018 09:53 NST Information EGA: 32.2 NST Duration (Min): 21 Datetime: 12/03/2018 08:45 NST Information EGA: 31.3 NST Duration (Min): 37 Datetime: 11/26/2018 08:23 NST Information EGA: 30.3 NST Duration (Min): 30
[2019-01-20 16:00] VITALS: BP 112/73; PULSE 85; RESP 18
[2019-01-20] MEDS ORDERED: CLINDAMYCIN 900 MG/D5W (PMX) 50 ML IVPB SCH (17:29)
[2019-01-20] MEDS: CLINDAMYCIN 300 MG CAP PO SCH (17:40)
[2019-01-20 20:00] VITALS: BP 116/73; PULSE 83; RESP 18
[2019-01-21] MEDS: CLINDAMYCIN 300 MG CAP PO SCH ×4 (00:22→17:56)
[2019-01-21] MEDS: HYDROCODONE/APAP (5/325) TAB PO PRN ×3 (00:39→23:19)
[2019-01-21] MEDS: GENTAMICIN 80 MG/NS (PMX) 50 ML IVPB SCH ×3 (01:18→17:38)
[2019-01-21 04:00] VITALS: BP 109/70; PULSE 72; RESP 18
[2019-01-21] MEDS: IBUPROFEN 800 MG TAB PO SCH ×3 (05:49→22:17)
[2019-01-21] MEDS: ACCU-CHEK XX SCH ×2 (07:30→20:00)
[2019-01-21 08:00] VITALS: BP 112/66; PULSE 74; RESP 18
[2019-01-21] MEDS: SENNA/DOCUSATE NA (8.6MG/50MG) TAB PO SCH ×2 (08:29→21:12)
[2019-01-21] MEDS: metFORMIN (XR) 500 MG TAB PO SCH ×2 (08:30→21:12)
[2019-01-21 15:55] VITALS: BP 109/67; PULSE 75; RESP 16
--- NOTE | 2019-01-21 18:27 | DS ---
Date/Time of Note Date/Time of Note DATE: 01/21/19 TIME: 18:25 Discharge Summary Admission/Discharge Info Admit Date/Time Jan 19, 2019 at 04:09 Discharge Date/Time January 21 or 2018 Discharge Diagnosis Status post repeat Patient Condition: Good Procedures Repeat delivery Hx of Present Illness 38-year-old female underwent repeat Hospital Course Had uncomplicated postop course Discharge home on his second or third day with good prognosis and condition on 2000-calorie ADA diet fully ambulatory Home Meds Reported Medications NPH, Human Insulin Isophane (Humulin N Kwikpen) 100 Unit/1 Ml Insuln.pen, 15 UNIT SQ, EA 01/12/19 Metformin* (Glucophage*) 500 Mg Tab, 500 MG PO WITH DINNER, #30 TAB 01/01/19 Metformin* (Glucophage*) 850 Mg Tablet, 850 MG PO WITH BREAKFAST, #30 TAB 01/01/19 [id number] ( 19) 1 Each Tablet, 1 TAB PO DAILY, TAB 01/01/19 Follow-up Plan Was asked to refer to clinic in 01/26/2019 for staple removal Primary Care Provider Care Physician No Primary Time spent on discharge: > 30 minutes Pending Labs Laboratory Tests Test 01/20/19 19:56 01/21/19 06:22 01/21/19 08:15 01/21/19 11:15 Bedside 140 97 85 Glucose mg/dL (70-220) mg/dL (70-220) mg/dL (70-220) White Blood 11.8 Count 10^3/ul (4.8-1 0.8) Red Blood 3.37 Count 10^6/ul (4.20- 5.40) Hemoglobin 9.8 g/dl (12.0-16. 0) Hematocrit 29.1 % (37.0-47.0) Mean 86.4 Corpuscular fl (82.0-101.0 Volume ) Mean 29.1 Corpuscular pg (29.0-33.0) Hemoglobin Mean 33.7 Corpuscular g/dl (32.0-37. Hemoglobin Conc 0) ent Red Cell 14.0 Distribution % (11.5-14.5) Width Platelet Count 203 10^3/UL (140-4 15) Mean Platelet 10.6 Volume fl (7.4-10.4) Immature 0.400 Granulocytes % % (0.001-0.429 ) Neutrophils % 82.8 % (39.0-77.0) Lymphocytes % 9.8 % (15.0-51.0) Monocytes % 5.4 % (0.0-11.0) Eosinophils % 1.3 % (0.0-7.0) Basophils % 0.3 % (0.0-2.0) Nucleated Red 0.0 Blood Cells % /100WBC (0.0-0 .0) Immature 0.050 Granulocytes # 10^3/ul (0.0-0 .031) Neutrophils # 9.8 10^3/ul (1.6-7 .5) Lymphocytes # 1.2 10^3/ul (0.8-2 .9) Monocytes # 0.6 10^3/ul (0.3-0 .9) Eosinophils # 0.2 10^3/ul (0.0-0 .5) Basophils # 0.0 10^3/ul (0.0-0 .1) Nucleated Red 0.0 Blood Cells # 10^3/ul (0.0-0 .0) Test 01/21/19 15:14 Bedside 105 Glucose mg/dL (70-220) MAI RUIZ MD Jan 21, 2019 18:26
--- NOTE | 2019-01-21 18:28 | DS ---
Date/Time of Note Date/Time of Note Home today or next day DATE: 01/21/19 TIME: 18:27 Obstetrical Discharge Record Final Diagnosis Final Diagnosis: Term delivered Other Final Diagnosis Status post delivery Complications Gestational Diabetes Condition on Discharge Physical Assessment Last Vitals: See nurse's notes Voiding: Yes Bowel Movement: Yes Breast: Soft, non-tender, Filling Fundus: Firm Abdomen and Incision: Abdomen is soft with present bowel sounds and abdomen does not seem distended Incision is healing well without induration and no erythema Calf Tenderness: No Patient Condition: Good MAI RUIZ MD Jan 21, 2019 18:28
--- NOTE | 2019-01-21 18:29 | PD.PPDC ---
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 Provider Information Physician Information -year-old female had repeat section Diagnosis Ozdac2Ln Final Diagnosis: Stknz0s Status post delivery Condition [id number] Patient Condition: Cabvd0w Good Diet Mvldr6Xs Diet: Mmypn1p Special Diet Special Diet: 2000-calorie ADA diet Activity/Restrictions Thmjr2Jj Activity: Vgpvt9u May Shower Xhfpx5On Restrictions: Mqcro9l No Exercising No Lifting Nothing in the Vagina Wound/Drain Care Instructions [id number] Wound/Drain Care Instructions: Sztra6u Keep clean and dry Follow-up Follow-up with Physician: 5, Day/Days (In clinic for staple removal) Return to clinic for Jfews8Xd NEWS COMMENTATOR Instructions: Kcmie7y Fever greater than 101 Chills Ohgmx3Bv OB Instructions: Xhzdw0z Breast Tenderness Depression Comment: Pelvic rest and no hard activity for 2 months Agbwe6Jw Surgical Instructions: Ixymm0a Incisional Drainage Incisional Redness MAI RUIZ MD Jan 21, 2019 18:29
[2019-01-21] MEDS ORDERED: METF500T3 PO (18:30)
[2019-01-21] MEDS ORDERED: ACET325T33 PO (18:30)
[2019-01-21] MEDS ORDERED: ACETAMINOPHEN 325 MG TAB PO PRN (18:30)
[2019-01-21] MEDS ORDERED: IBUP800T48 PO (18:31)
[2019-01-21 20:00] VITALS: BP 125/79; PULSE 84; RESP 18
[2019-01-22] MEDS: CLINDAMYCIN 300 MG CAP PO SCH ×2 (00:15→05:54)
[2019-01-22 04:00] VITALS: BP 113/70; PULSE 65; RESP 18
[2019-01-22] MEDS: IBUPROFEN 800 MG TAB PO SCH (05:54)
[2019-01-22] MEDS: ACCU-CHEK XX SCH (07:30)
[2019-01-22 08:00] VITALS: BP 115/66; PULSE 62; RESP 18
[2019-01-22] MEDS: metFORMIN (XR) 500 MG TAB PO SCH (08:58)
[2019-01-22] MEDS: SENNA/DOCUSATE NA (8.6MG/50MG) TAB PO SCH (08:58)
[2019-01-22] MEDS ORDERED: MEASLES,MUMPS,RUBELLA VACCINE INJ SC* ONE (09:00)
[2019-01-22] MEDS ORDERED: DIPHTH/TET/ACEL PERTUSS (ADULT) 0.5 ML VIAL IM* ONE (09:00)
--- NOTE | 2019-01-23 12:57 | DELSUM ---
Delivery Summary A-C Datetime Report Generated by CPN: 01/23/2019 12:56 DELIVERY PERSONNEL Cotton Puller: Seay, Paul MATERNAL INFORMATION Delivery Anesthesia: Spinal Medications in Delivery: GENTAMICYN 80 MG Placenta Cultured: No Maternal Complications: Other Other Maternal Complications: HISTORY DEMISE AT 24 WEEKS, A2DM, PREVIOUS C/SECTION X2 LABOR SUMMARY EDC: 02/01/2019 00:00 No. Babies in Womb: 1 Attempted: No Labor Anesthesia: Epidural LABOR INFORMATION Reason for Induction: Not Applicable Onset of Labor: 01/19/2019 00:00 Group B Beta Strep: Negative Antibiotics # of Doses: 1 Antibiotics Time of Last Dose: 01/19/2019 11:42 Steroids Given: None Reason Steroids Not Administered: Not Applicable MEMBRANES Membranes Rupture Method: Artificial Rupture of Membranes: 01/19/2019 12:32 Length of Rupture (hr): 0.03 Amniotic Fluid Color: Clear Amniotic Fluid Amount: Moderate Amniotic Fluid Odor: None STAGES OF LABOR Stage 3 hr: 0 Stage 3 min: 1 Total Time in Labor hr: 12 Total Time in Labor min: 35 CSECTION DELIVERY Primary Indication: Repeat Elective Secondary Indication: N/A CSection Urgency: Elective CSection Incidence: Repeat Labor: Labor Elective: Nonelective CSection Incision: Lower Uterine Transverse BABY A INFORMATION Delivery Date/Time: 01/19/2019 12:34 Method of Delivery: Born in Route : No : N/A Forceps: N/A Vacuum Extraction: N/A Shoulder Dystocia : No SHOULDER DYSTOCIA BABY A Infant Delivery Date/Time: 01/19/2019 12:34 PRESENTATION/POSITION BABY A Presentation: Breech Cephalic Presentation: N/A Breech Presentation: Wilmer PLACENTA INFORMATION BABY A Placenta Delivery Time : 01/19/2019 12:35 Placenta Method of Delivery: Manual Removal Placenta Status: Delivered SCORES BABY A Heart Rate 1 min: >100 bpm Resp Effort 1 min: Good Cry Reflex Irritability 1 min: Cough/Sneeze/Pulls Away Muscle Tone 1 min: Active Motion Color 1 min: Blue/Pale Resuscitation Effort 1 min: Tactile Stimulation SCORE 1 MIN: 8 Heart Rate 5 min: >100 bpm Resp Effort 5 min: Good Cry Reflex Irritability 5 min: Cough/Sneeze/Pulls Away Muscle Tone 5 min: Active Motion Color 5 min: Body [place], Extremit Blue SCORE 5 MIN: 9 INFANT INFORMATION BABY A Gestational Age at Delivery: 38.1 Gestational Status: Early Term- 37- 38.6 Weeks Infant Outcome : Liveborn, with signs of life Infant Condition : Stable Infant Sex: Female IDENTIFICATION/MEDS BABY A ID Band Number: [id number] ID Band Location: Right Leg; Left Arm Sensor Number: [id number] Sensor Location : Cord Clamp Vitamin K Given : Not Given Erythromycin Given: Not Given WEIGHT/LENGTH BABY A Infant Birthweight (gm): 3485 Weight (lb): 7 Infant Weight (oz): 11 Length (in): 19.75 Length (cm): 50.17 CORD INFORMATION BABY A No. Cord Vessels: 3 Nuchal Cord : N/A Cord Blood Taken: Yes Infant Suction: Mouth; Nose ASSESSMENT BABY A Infant Complications: None Physical Findings at Delivery: Skin Tags Physical Findings- Other: RIGHT ARM PIT Respirations: Appears Normal Knuckle Bender/ALS Called : No Infant Care By: RT AND NOVEMBER O RN Transferred To: Remains with Mother
== END 2019-01-22 12:00 | disposition home or self-care (01) | DRG 788 ==
LOC: L-D 02:50 → OBT 02:50 → L-D 04:09 → OBT 04:09 → L-D 11:43 → PP1 16:40
PROVIDERS: ADMIT Obstetrics & Gynecology; ATTEND Obstetrics & Gynecology
PROC: 10D00Z1 Extraction of Products of Conception, Low, Open Approach (ICD-10-PCS; principal; 2019-01-19 14:00)
DX: O24.429 Gestational diabetes mellitus in childbirth, unspecified control (principal); O99.214 Obesity complicating childbirth; E66.01 Morbid (severe) obesity due to excess calories; Z3A.38 38 weeks gestation of pregnancy; Z37.0 Single live birth
CPT/HCPCS: 82947; 82962; 85025; 85610; 85730; 86592; 86850; 86900; 86901; 87340; 99464; G0463; J1580; J1885; J2274; J2405; J2590; J3010; J7120

== ENCOUNTER 2019-01-30 22:48 | Emergency (ER) | payer MEDICAID ==
[~2019-01-30] VITALS: Ht 167.6 cm; Wt 91.7 kg
[~2019-01-30 22:48] MED LIST changes: +ACET325T33 PO; +IBUP800T48 PO; -METF-480 PO; -METF-849 PO; +METF500T3 PO; -NPH,100I5 SQ
[2019-01-30 22:53] VITALS: BP 122/83; PULSE 61; RESP 18; Ht 167.6 cm; Wt 91.7 kg
[2019-01-31] MEDS ORDERED: CLIN300C10 PO (02:36)
[2019-01-31] MEDS ORDERED: ACET500C5 PO (02:36)
--- NOTE | 2019-01-31 02:40 | ERD ---
ER Documentation Chief Complaint Chief Complaint redness/swelling c/section incisite site. denies drainage HPI This is a 38-year-old female patient who presents to emergency room with compl aint of redness at her incision site increasing over the last few days. Denies drainage, no fevers, no abdominal pain, no nausea vomiting, no dysuria, no abnormal vaginal discharge. Otherwise well-appearing. Child was born 11 days ago at this hospital, patient denies complication at time of . This is her third section. No prior complications with prior C-sections. ROS All systems reviewed and are negative except as per history of present illness. Medications Home Meds Active Scripts Ibuprofen* (Motrin*) 400 Mg Tab, 400 MG PO Q8, #20 TAB Prov:ELYSIA BARRERA MD 02/02/19 Acetaminophen* (Tylophen*) 500 Mg Capsule, 2 CAP PO Q8H PRN for PAIN AND OR ZIA VATED TEMP, #20 CAP Prov:MOMO TAN NP 01/31/19 Clindamycin Hcl* (Clindamycin Hcl*) 300 Mg Capsule, 450 MG PO TID for skin infection for 7 Days, #21 CAP Prov:MOMO TAN NP 01/31/19 Ibuprofen* (Motrin*) 800 Mg Tab, 800 MG PO Q8, #60 TAB 0 Refills Prov:MAI RUIZ MD 01/21/19 Metformin* (Glucophage* XR) 500 Mg Tab.sr.24h, 500 MG PO BID, #120 6 Refills Prov:MAI RUIZ MD 01/21/19 Acetaminophen* (Tylenol*) 325 Mg Tablet, 650 MG PO Q6H PRN for MILD PAIN(1-3)OR ELEVATED TEMP, #60 TAB 0 Refills Prov:MAI RUIZ MD 01/21/19 Reported Medications [id number] Pgsnlpyp-[id number]-CAO ( ) 1 Each Tablet, 1 TAB PO DAILY, TAB 01/01/19 Allergies Allergies: Coded Allergies: Penicillins (Verified Allergy, Unknown, 01/19/19) PMhx/Soc History of Surgery: Yes () Anesthesia Reaction: No Hx Neurological Disorder: No Hx Respiratory Disorders: No Hx Cardiac Disorders: No Hx Psychiatric Problems: No Hx Miscellaneous Medical Probl: No Hx Alcohol Use: No Hx Substance Use: No Hx Tobacco Use: No Smoking Status: Never smoker FmHx Family History: diabetes Physical Exam Vitals Vital Signs Date Temp Pulse Resp B/P (MAP) Pulse Ox O2 O2 Flow FiO2 Time Delivery Rate 01/30/19 97.7 61 18 122/83 98 22:53 (96) Physical Exam Const: No acute distress Head: Atraumatic Eyes: Normal Conjunctiva ENT: Normal External Ears, Nose and Mouth. Neck: Full range of motion. No meningismus. No lymphadenopathy Resp: Clear to auscultation bilaterally Cardio: Regular rate and rhythm, no murmurs Abd: Soft, non tender, non distended. Normal bowel sounds Skin: No petechiae or rashes. +steri-strips in place across lower abdomen, +redness to abdominal pannus, no purulent drainage noted Back: No midline or flank tenderness Ext: No cyanosis, or edema Neur: Awake and alert Psych: Normal Mood and Affect Procedures/MDM PROCEDURES/MDM LAB INTERPRETATION: MDM: Is a 38-year-old female patient with complaint of redness at site of her section. No fevers, no malaise, no nausea or vomiting. Patient states that she has appointment with her OB in 3 days to have her brooks removed. Patient is allergic to penicillins and was noted to have clindamycin IV during her course, therefore was prescribed clindamycin again today. Additionally, and searching for antibiotic treatment options, clindamycin is listed as safe in a lactating mother with low risk to infant. Patient was given strict instructions on care of incision site, completing entire course of antibiotics, and signs and symptoms of worsening of condition and when to seek emergent medical treatment. Patient and verbalized plan to keep appointment at OB in 3 days for follow-up. This patients soft tissue infection appears to be appropriate for outpatient treatment with close follow-up for reevaluation by a clinician within 72 hours. A serious, rapidly progressive infectious process is unlikely based upon the patients presentation and appearance of the infection. Antibiotic treatment has been initiated here and response to treatment will be based on reassessment at close follow-up. The patient has been instructed on signs and symptoms of acute progression of infection and to return immediately if any of these occur. DISPOSITION and PLAN: RX: The patient has been discharge home to follow-up with community physician. Departure Diagnosis: Primary Impression: Surgical site infection Condition: Stable Patient Instructions: Cellulitis Referrals: [facility] Usted se barakat hecho un examen mdico de control que le indica que no est en leandro condicin que requiera tratamiento urgente en el Departamento de Emergencia. Un estudio ms profundo y el tratamiento de johnson condicin pueden esperar sin ningn riesgo hasta que usted sea atendida/o en el consultorio de johnson mdico o leandro clnica. Es responsabilidad suya arreglar leandro loulou para el seguimiento del zak. MANEJO DE CONDICIONES NO URGENTES EN EL FUTURO 1) Si usted tiene un mdico de atencin primaria: Usted debera llamar a johnson mdico de atencin primaria antes de venir al departamento de emergencia. Despus de las horas de consultorio, johnson doctor o johnson asociado/a est disponible por telfono. El mdico o enfermero de esau en el servicio telefnico puede asesorarle por ele medio para atender el problema, o zak contrario se puede programar leandro loulou. 2) Si usted no tiene un mdico de atencin primaria: Llame al mdico o clnica de referencia que aparece abajo teddy las horas de consultorio para hacer leandro loulou para que le vean. CLINICAS: [facility] [phone] [facility] [phone] [facility] [phone] [address] [facility] [phone] [address] [facility] [phone] [address] [phone] [facility] () Usted se barakat hecho un examen mdico de control que le indica que no est en leandro condicin que requiera tratamiento urgente en el Departamento de Emergencia. Un estudio ms profundo y el tratamiento de johnson condicin pueden esperar sin ningn riesgo hasta que usted sea atendida/o en el consultorio de johnson mdico o leandro clnica. Es responsabilidad suya arreglar leandro loulou para el seguimiento del zak. MANEJO DE CONDICIONES NO URGENTES EN EL FUTURO 1) Si usted tiene un mdico de atencin primaria: Usted debera llamar a johnson mdico de atencin primaria antes de venir al departamento de emergencia. Despus de las horas de consultorio, johnson doctor o johnson asociado/a est disponible por telfono. El mdico o enfermero de esau en el servicio telefnico puede asesorarle por ele medio para atender el problema, o zak contrario se puede programar leandro loulou. 2) Si usted no tiene un mdico de atencin primaria: Llame al mdico o condado institucions de referencia que aparece abajo teddy las horas de consultorio para hacer leandro loulou para que le vean. SI USTED NO PUEDE PAGAR PARA SHWETA UN MEDICO puede ir a: [facility] [address] [place] [address] [facility] [address] [place] [address] [facility] [address] [place] [address] [facility] [address] [place], [place] [phone] Additional Instructions: Thank you very much for allowing us to participate in your care. Your health and safety is our top priority at [facility]. Call your primary care doctor TOMORROW for an appointment during the next 2-4 days and bring all the information and medications prescribed. Have prescriptions filled and follow precisely the directions on the label. If the symptoms get worse and your provider is unavailable, return to the Emergency Department immediately. COMPLETE ENTIRE COURSE OF ANTIBIOTICS NEXT USE TYLENOL NEEDED FOR PAIN APPLY COOL COMPRESS NEEDED FOR COMFORT FOLLOW-UP WITH YOUR DOCTOR PLANNED ON SATURDAY RETURN TO THE EMERGENCY ROOM SOONER WITH FEVER, EXTREME PAIN, WORSENING OF REDNESS AND SWELLING AT INCISION, ANY DRAINAGE AT INCISION MOMO TAN NP Jan 31, 2019 02:40
== END 2019-01-31 02:59 | disposition home or self-care (01) ==
LOC: FTE 22:48
DX: O86.00 Infection of obstetric surgical wound, unspecified (principal); B96.89 Other specified bacterial agents as the cause of diseases classified elsewhere

== ENCOUNTER 2019-02-02 15:11 | Emergency (ER) | payer MEDICAID ==
[~2019-02-02] VITALS: Ht 167.6 cm; Wt 89.4 kg
[~2019-02-02 15:11] MED LIST changes: +ACET500C5 PO; +CLIN300C10 PO
[2019-02-02 15:23] VITALS: BP 123/80; PULSE 72; RESP 17; Ht 167.6 cm; Wt 89.4 kg
--- NOTE | 2019-02-02 16:14 | ERD ---
ER Documentation Chief Complaint Chief Complaint WOUND CHECK ON RECENT JANUARY 19, 2019, NO PAIN REPORTED HPI 38-year-old female, status post 2 weeks ago, presents the emergency department, complaining of sudden onset of clear discharge through the surgical incision. The patient was seen here 2 days ago for increased tenderness and erythema and was started on clindamycin and [place], the patient refers good compliance with medications, no side effects. The patient currently denies fever, chills, she has an appointment in 2 days with the primary doctor at [facility]. ROS All systems reviewed and are negative except as per history of present illness. Medications Home Meds Active Scripts Ibuprofen* (Motrin*) 400 Mg Tab, 400 MG PO Q8, #20 TAB Prov:ELYSIA BARRERA MD 02/02/19 Acetaminophen* (Tylophen*) 500 Mg Capsule, 2 CAP PO Q8H PRN for PAIN AND OR ELEVATED TEMP, #20 CAP Prov:MOMO TAN NP 01/31/19 Clindamycin Hcl* (Clindamycin Hcl*) 300 Mg Capsule, 450 MG PO TID for skin infection for 7 Days, #21 CAP Prov:MOMO TAN NP 01/31/19 Ibuprofen* (Motrin*) 800 Mg Tab, 800 MG PO Q8, #60 TAB 0 Refills Prov:MAI RUIZ MD 01/21/19 Metformin* (Glucophage* XR) 500 Mg Tab.sr.24h, 500 MG PO BID, #120 6 Refills Prov:MAI RUIZ MD 01/21/19 Acetaminophen* (Tylenol*) 325 Mg Tablet, 650 MG PO Q6H PRN for MILD PAIN(1-3)OR ELEVATED TEMP, #60 TAB 0 Refills Prov:MAI RUIZ MD 01/21/19 Reported Medications [id number] ( 19) 1 Each Tablet, 1 TAB PO DAILY, TAB 01/01/19 Allergies Allergies: Coded Allergies: Penicillins (Verified Allergy, Unknown, 01/19/19) PMhx/Soc History of Surgery: Yes () Anesthesia Reaction: No Hx Neurological Disorder: No Hx Respiratory Disorders: No Hx Cardiac Disorders: No Hx Psychiatric Problems: No Hx Miscellaneous Medical Probl: No Hx Alcohol Use: No Hx Substance Use: No Hx Tobacco Use: No FmHx Family History: No diabetes, No coronary disease Physical Exam Vitals Vital Signs Date Temp Pulse Resp B/P (MAP) Pulse Ox O2 O2 Flow FiO2 Time Delivery Rate 02/02/19 99.1 72 17 123/80 97 15:23 (94) Physical Exam Const: No acute distress Head: Atraumatic Eyes: Normal Conjunctiva ENT: Normal External Ears, Nose and Mouth. Neck: Full range of motion. No meningismus. Resp: Clear to auscultation bilaterally Cardio: Regular rate and rhythm, no murmurs Abd: Soft, non tender, non distended, surgical incision clean, intact, with serous drainage. Normal bowel sounds Skin: No petechiae or rashes Back: No midline or flank tenderness Ext: No cyanosis, or edema Neur: Awake and alert Psych: Normal Mood and Affect Procedures/MDM Status post 2 weeks ago. Adequate pain control, no fever, no chills, good compliance with medications no side effects. Clinical presentation and physical exam consistent with noninfected seroma of the incision, I recommended to continue with antibiotics prescribed and follow-up in 2 days with [facility]. The patient was instructed to follow up with the primary care provider in the next 48h. If symptoms persist, worsen or new symptoms develop, then patient should return to the ED immediately. Instructions explained and given directly by me to the patient with acknowledgment and demonstrated understanding. Disclaimer: Inadvertent spelling and grammatical errors are likely due to EHR/dictation software use and do not reflect on the overall quality of patient care. Also, please note that the electronic time recorded on this note does not necessarily reflect the actual time of the patient encounter. Departure Diagnosis: Primary Impression: Seroma after procedure Condition: Stable Additional Instructions: Muchas shahnaz por [facility] para johnson servicio. Esperamos que en johnson visita a la leta de emergencia johnson problema medico haya sido solucionado y que se sienta mucho mejor. Para estar seguros que johnson mejoria sigue en proceso, le pedimos el favor de hacer leandro loulou de seguimiento medico con johnson doctor primario en los proximos 2-4 zavala. Lleve con usted estos documentos y las medicinas recetadas. Si lolly sintomas empeoran, NO SE ESPERE, por favor regrese a leta de emergencia INMEDIATAMENTE. En zak que usted no tenga un mdico de atencin primaria: Llame al mdico o clnica comunitaria de referencia que aparece abajo teddy las horas de consultorio para hacer leandro loulou para que le vean. CLINICAS: [facility] [id number] [facility] [id number] [facility] [id number] [facility] [phone] [facility] [phone] [id number] [facility]. [phone] ELYSIA BARRIENTOS MD Feb 02, 2019 16:14
[2019-02-02] MEDS ORDERED: IBUP-1561 PO (16:16)
== END 2019-02-02 16:16 | disposition home or self-care (01) ==
LOC: E/R 15:11
DX: O90.2 Hematoma of obstetric wound (principal)
CPT/HCPCS: 99281